=== PATIENT | male | born 1935 | race Caucasian/White ===

== ENCOUNTER 2016-10-20 09:45 | Day surgery (SDC) | payer MEDICARE, OTHER ==
[~2016-10-20] VITALS: Ht 180.3 cm; Wt 108.9 kg
[~2016-10-20 09:45] MED LIST: ASPI81TA53 PO; ECON15CR10 TOP; GARL1CAP7 PO; GLIM2TAB2 PO; GLYB1.253 PO; KEN1O TOP; METF850T2 PO; OMEG-38 PO; PIOG30TA26 PO; RAMI2.5C PO; SAW450CA4 PO; SIMV40TA5 PO; Sodium Chloride LOK Flush 10 mL Syringe IV PRN; TAMS0.4C29 PO; fentaNYL-PF 50 mCg/mL 2 mL Inj IVPUSH PRN; vit d
[2016-10-20 10:14] VITALS: BP 170/79; PULSE 57; RESP 18; O2SAT 99
[2016-10-20] MEDS: 0.9% Sodium Chloride 1,000 ML IV PRN ×3 (11:09→11:41)
[2016-10-20 11:53] VITALS: BP 171/89; PULSE 57; O2SAT 100
[2016-10-20 12:05] VITALS: BP 160/68; PULSE 54; O2SAT 100
--- NOTE | 2016-10-20 12:23 | ENDO ---
[address] [address] ENDOSCOPY PROCEDURE PATIENT: LUCIANA LAU : 1935 MR#: [id number] ADMIT: 10/20/2016 JOB ID: [id number] CORRECTED REPORT: DATE: 10/20/2016 PRIMARY PROVIDER: Vince Trujillo DO PROCEDURE: Colonoscopy with hot snare polypectomy and cold forceps polypectomy. INDICATIONS: An 81-year-old male with a history of colon polyps, returning for surveillance. EQUIPMENT: PCF H 180 AL. SEDATION: Versed 2 mg, 50 mcg fentanyl. COMPLICATIONS: None identified. BOWEL PREPARATION: Fair, adequate exam. PROCEDURE INFORMATION: After the risks and benefits were explained, written and verbal informed consent was obtained. The patient was brought into the endoscopy suite and placed into the left lateral decubitus position. Sedation was achieved as above. A digital rectal examination was accomplished. No significant pathology appreciated. The scope was introduced into the rectum and advanced to the cecum as identified by the appendiceal orifice and ileocecal valve. The scope was slowly withdrawn to carefully examine the mucosa for any defects or lesions. Retroflexed views were accomplished in the rectum, the colon was decompressed, and the scope removed from the patient, who tolerated the procedure well. FINDINGS: In the sigmoid there was some diverticulosis. The previously placed tattoo was noted. There were a couple of hyperplastic appearing polyps in the vicinity and these were removed with cold forceps. In the ascending colon there was a flat, nearly 1 cm, subtle polyp removed with hot snare. No other significant pathology was appreciated throughout. ENDOSCOPIC DIAGNOSIS: 1. Colon polyps. 2. Diverticulosis. RECOMMENDATIONS: 1. Await histopathology. 2. Repeat colonoscopy three years. Corrected by ROMELIA 10/26/16 at 11:51am DOS.
--- NOTE | 2016-10-21 16:08 | PATH ---
SURGICAL PATHOLOGY Attending Physician:Ashley May CASE STATUS: Signed Out PATIENT NAME: LUCIANA LAU PID: [id number] : 1935 DATE COLLECTED:10/20/2016 00:00 SPECIMEN: 1: Colon, Polyp 2: Colon, Polyp CLINICAL HISTORY: 1). ASCENDING COLON POLYP 2). SIGMOID COLON POLYPS X2 FINAL DIAGNOSIS: 1. Ascending Colon, Polyp, Biopsy: Portions of tubular adenoma x3; negative for high-grade dysplasia. 2. Sigmoid Colon Polyp, Biopsy: Portions of hyperplastic polyp x2. ICD10: K63.5 GROSS DESCRIPTION: 1. Received in formalin, labeled with the patient's name and "1. Ascending colon polyp" consists of three beige-estrella soft tissue fragments ranging in measurement from 0.2 x 0.1 x 0.1 cm to 1.2 x 0.6 x 0.5 cm. The largest fragment is inked blue, trisected. All fragments are entirely submitted in cassette 1A. 2. Received in formalin, labeled with the patient's name and "2. Sigmoid colon polyp" consist of two beige-estrella soft tissue fragments measuring 0.2 x 0.1 x 0.1 cm and 0.3 x 0.2 x 0.2 cm, and entirely submitted in cassette 2A. ([id number]) ICD-9 CODES: CPT CODES: 1: 41595 2: 37205 Electronically Signed Out By Alma Negro MD [facility] [place] [facility] Alma Negro MD [facility], [address] [place] [address], [place] [address] Technical component performed at [facility], [address] [place] [address] Ave[address], [place], [address]
== END 2016-10-20 23:59 | disposition home or self-care (01) ==
LOC: END 09:45
PROVIDERS: ATTEND Internal Medicine Gastroenterology
DX: Z12.11 Encounter for screening for malignant neoplasm of colon (principal); Z86.010 Personal history of colon polyps; D12.2 Benign neoplasm of ascending colon; K63.5 Polyp of colon; K57.30 Diverticulosis of large intestine without perforation or abscess without bleeding; I10 Essential (primary) hypertension; E11.9 Type 2 diabetes mellitus without complications; E78.5 Hyperlipidemia, unspecified; R80.9 Proteinuria, unspecified; Z79.84 Long term (current) use of oral hypoglycemic drugs; F17.210 Nicotine dependence, cigarettes, uncomplicated
CPT/HCPCS: 45380; 45385; 99153; G0500; J2250; J3010; J7030